=== PATIENT | male | born 1985 | race Caucasian/White ===

== ENCOUNTER → 2017-08-16 | Outpatient (CLI) | payer OTHER ==
--- NOTE | 2017-08-16 09:38 | DIAGNOSTIC IMAGING REPORT ---
CHEST 2 VIEWS ROUTINE CLINICAL HISTORY: COUGH dyspnea COMPARISON STUDY: No previous studies for comparison. FINDINGS: Parenchymal infiltrate medial aspect right base. Slight accentuation of the peribronchial and interstitial markings in the mid to lower lung regions bilaterally. IMPRESSION: Parenchymal infiltrate medial right base. Slight peribronchial prominence the mid to lower lung regions bilaterally. The above report was generated using voice recognition software. It may contain grammatical, syntax or spelling errors. Electronically signed by: Sundar Garcia M.D. 08/16/2017 9:37 AM Dictated Date/Time: 08/16/2017 9:36 AM
== END | disposition home or self-care (01) ==
LOC: C.RAD1850 09:08
PROVIDERS: ATTEND Student in an Organized Health Care Education/Training Program
DX: R05 Cough (principal); R91.8 Other nonspecific abnormal finding of lung field